=== PATIENT | male | born 1990 | race Two or more races ===

== ENCOUNTER → 2025-02-11 | Outpatient (CLI) | payer MEDICAID, SELFPAY ==
--- NOTE | 2025-02-11 | XR_ITS ---
Examination: Esophagram standard Upright PA chest single view Upright soft tissue lateral neck single view 13 spot fluoroscopic films of the esophagus Fluoroscopy Exam date and time: The film today 0954 hours INDICATIONS: Difficulty swallowing 2 years getting worse TECHNIQUE AND FINDINGS: Upright PA chest single view demonstrates normal heart size, clear lungs Upright soft tissue lateral neck demonstrates adequate alignment cervical vertebral bodies, mild osteophyte formation anteriorly C6-C7 Primary peristaltic esophageal waves noted No constricting esophageal lesion Small retrocardiac gastric hernia. Mild intermittent gastroesophageal reflux. There is no stricture at the gastroesophageal junction IMPRESSION: Mild intermittent gastroesophageal reflux. There is no stricture at the gastroesophageal junction Fluoroscopy 0.24 minutes 13 spot fluoroscopic films of the esophagus
== END | disposition home or self-care (01) ==
PROVIDERS: PCP Nurse Practitioner Family; Referring Provider Nurse Practitioner Family; Visit Provider Nurse Practitioner Family
DX: K21.9 Gastro-esophageal reflux disease without esophagitis (principal)
CPT/HCPCS: 74220; A4699

== ENCOUNTER 2025-09-07 16:08 | Emergency (ER) | payer MEDICAID, SELFPAY ==
[2025-09-07 16:10] VITALS: BMI 29.8
[2025-09-07 16:47] VITALS: BP 118/73; PULSE 60; RESP 18; TEMP 37.3; O2SAT 98
--- NOTE | 2025-09-07 17:18 | XR_ITS ---
Examination: Knee, right, 3 views Technique: Knee AP, lateral, oblique 3 views Date and time of exam: September 07, 2025, 1727 hours INDICATIONS: Sudden onset knee pain beginning 3 days ago FINDINGS: Mild tricompartment osteoarthritis No fracture or dislocation Small knee effusion IMPRESSION: Mild tricompartment osteoarthritis No fracture
[2025-09-07] MEDS: ACETAMINOPHEN 500 MG TABLET 1000 MG PO (17:23)
[2025-09-07] MEDS: IBUPROFEN TAB 400 MG TABLET 800 MG PO (17:23)
--- NOTE | 2025-09-07 17:38 | EDRME_ITS ---
Rapid Medical Screening Exam [facility] Arrival date/time: 09/07/25 16:08 This is a 35-year-old male that comes into the emergency room with complaints of right knee pain. Patient states his right knee is slightly erythemic and is getting swollen. Patient denies trauma. Patient states he did injure his knee approximately 3 weeks ago but did not have any swelling at that time. Patient currently being treated for an abscess to his right hip area and is currently on clindamycin. Patient denies any trauma to his right knee and insist on an x- ray. I have greeted and performed a focused initial assessment of this patient. Initial appropriate labs ordered at this time. A comprehensive ED assessment and evaluation of the patient and analysis of all test and completion of medical decision making process will be conducted by additional ED provider. Chief Complaint: Skin/Abscess/Foreign Body Time Seen by Provider: 09/07/25 16:41 Vital signs: Vital Signs Temperature 99.1 F 09/07/25 16:47 Pulse Rate 60 09/07/25 16:47 Respiratory Rate 18 09/07/25 16:47 Blood Pressure 118/73 09/07/25 16:47 Pulse Oximetry (%) 98 09/07/25 16:47 Oxygen Delivery Method Room Air 09/07/25 16:47
--- NOTE | 2025-09-07 18:19 | PD.EDSKIN ---
ED Skin Abcess FB-RME/HPI General Chief complaint: Skin/Abscess/Foreign Body Stated complaint: R HIP & KNEE ABSCESS X3 DAYS Time Seen by Provider: 09/07/25 16:41 Arrival date/time: 09/07/25 16:08 RME / HPI RME / HPI narrative: 09/07/25 16:08 This is a 35-year-old male that comes into the emergency room with complaints of right knee pain. Patient states his right knee is slightly erythemic and is getting swollen. Patient denies trauma. Patient states he did injure his knee approximately 3 weeks ago but did not have any swelling at that time. Patient currently being treated for an abscess to his right hip area and is currently on clindamycin. Patient denies any trauma to his right knee and insist on an x-ray. I have greeted and performed a focused initial assessment of this patient. Initial appropriate labs ordered at this time. A comprehensive ED assessment and evaluation of the patient and analysis of all test and completion of medical decision making process will be conducted by additional ED provider. See MDM for HPI Documentation Related Data Previous Rx's ?Medication ?Instructions ?Recorded acetaminophen 300 mg-codeine 30 mg 2 tab PO Q8H PRN pain #20 tabs 09/07/25 tablet amoxicillin 875 mg-potassium 1 tab PO BID #20 tabs 09/07/25 clavulanate 125 mg tablet ibuprofen 800 mg tablet 800 mg PO Q8H PRN pain #30 tabs 09/07/25 lidocaine 5 % topical patch 2 patch topical QDAY PRN pain #30 09/07/25 (Lidoderm) ea Allergies Allergy/AdvReac Type Severity Reaction Status Date / Time No Known Allergies Allergy Verified 09/07/25 16:13 Review of Systems Review of Systems Systems Reviewed: All systems reviewed, normal except as documented Past Medical History Social History SMOKING STATUS: Never smoker ED Exam Narrative Physical exam: See [facility] for Physical Exam Documentation Course Quality Measures none Orders Category Date Time Status XR knee RT 3V Stat Exams 09/07/25 17:18 Completed Acetaminophen Tab [Tylenol ES Tab] Med 09/07/25 17:17 Discontinued 1,000 mg PO X1 ONE Amoxicillin/Pot Clav 875 [Augmentin 875] Med 09/07/25 18:36 Discontinued 1 tab PO X1 ONE Ibuprofen Tab [Motrin Tab] Med 09/07/25 17:17 Discontinued 800 mg PO X1 ONE Vital Signs Vital signs: Vital Signs Temperature 99.1 F 09/07/25 16:47 Pulse Rate 60 09/07/25 16:47 Respiratory Rate 18 09/07/25 16:47 Blood Pressure 118/73 09/07/25 16:47 Pulse Oximetry (%) 98 09/07/25 16:47 Oxygen Delivery Method Room Air 09/07/25 16:47 Skin / Abscess / Foreign Body MDM Narrative MDM Narrative:: This section includes all my notes and documentations, including HPI, PE, and ED course. Kayden Orona MD HPI: 35 y/o male presents with right knee pain and swelling x 3 days. With redness and warmth. No other complaints. ROS: All negative except as documented in HPI. Physical Exam: General: Alert and oriented. No acute distress when remaining still. Eyes: Conjunctivae and lids clear. ENT: No nasal congestion. Neck: Supple. Lungs: No respiratory distress. Skin: Warm and dry. Neuro: Alert and oriented X 3. Right knee: Superficial apple sized erythema and edema noted anteriorly with calor. At the center, there is acorn sized abrasion (patient reports recent scrape injury). No bony tenderness. No limited range of motion. I reviewed all diagnostic test results: My interpretation of the right knee x-ray is NAD. At this point, diagnoses include: Cellulitis Treatment here included: Tylenol 1,000 mg Motrin 800 mg Augmentin 875 He started to feel better. Recommended outpatient management. Based on my best medical judgment, made decision no further evaluation or treatment indicated at this time. Patient understands and agrees to the discharge instructions customized and printed, see below. Discharge Instructions from Dr. Orona printed for you: 1. After evaluation, you have cellulitis infection over the right knee and under the skin. From your scrape injury recently which introduced germs under the skin. 2. Take Augmentin to kill the germs causing the infection. 3. For 3 days, elevate the knee above your waist level is much as possible. 4. Ibuprofen 800 mg every 6-8 hours today and tomorrow to decrease inflammation then as needed. Tylenol with codeine and lidocaine patches as needed. 5. See a private doctor on 09/09/2025 for recheck. Ask for help until you are completely better. 6. Seek immediate medical care with fever, spreading redness despite taking Augmentin for 24 hours, or with any concerns. Kayden Orona MD Patient data External records reviewed:: [facility] previous records (No prior ED records available for review) Clinical information provided by:: patient Social determinants that could affect healthcare access:: none Patient has the following chronic illnesses:: None reported How is presenting disease/condition affected by chronic disease/condition?: no chronic disease Evaluation data The following diagnostics were reviewed and interpreted by me:: radiology exam(s) Lab and/or radiology exams considered but not ordered:: None Interpretation Summary: I reviewed all diagnostic test results: My interpretation of the right knee x-ray is NAD. Medications / Prescriptions Medications or Prescriptions considered but not ordered:: None Medication administrations:: Medication Administration History Discontinued Medications Acetaminophen (Acetaminophen 500 Mg Tablet) 1,000 mg PO X1 ONE Stop: 09/07/25 17:18 Last Admin: 09/07/25 17:23 Dose: 1,000 mg Documented By: [facility] Amoxicillin/Clavulanate Potassium (Amoxicillin/Pot Clav 875 Tablet) 1 tab PO X1 ONE Stop: 09/07/25 18:37 Last Admin: 09/07/25 18:45 Dose: 1 tab Documented By: Ibuprofen (Ibuprofen Tab 400 Mg Tablet) 800 mg PO X1 ONE Stop: 09/07/25 17:18 Last Admin: 09/07/25 17:23 Dose: 800 mg Documented By: [facility] Tylenol 1,000 mg Motrin 800 mg Augmentin 875 Consultations Consultation(s) initiated? (list below): No Diagnosis Skin/Abscess Differential Diagnosis: abscess of skin or subcutaneous tissue, cellulitis, contact dermatitis and other (Knee pain, strain) Most likely diagnosis given after review of the tests above:: Cellulitis Admission Indicated Admission indicated?: not indicated Explain why admission is indicated or not indicated:: With significant improvement and no condition needing emergent intervention, there was no indication for admission. Admission Request Was there a request for admission?: No Disposition Plan Disposition Plan: Discharge Discharge Attestation Discharge Attestation: The patient and all family members were given an opportunity to ask questions and understood the discharge instructions. Discharge instructions specifically effects, indications for sooner follow up or return to the emergency department, and the expected course of current diagnosis. Patient condition: Stable Discharge Plan Plan Patient Disposition: HOME (Self Care) Prescriptions/Referrals Prescriptions/Med Rec: New ibuprofen 800 mg tablet 800 mg PO Q8H PRN (Reason: pain) Qty: 30 0RF acetaminophen-codeine 300-30 mg tablet 2 tab PO Q8H MDD 6 PRN (Reason: pain) Qty: 20 0RF lidocaine [Lidoderm] 5 % adhesive patch,medicated 2 patch topical QDAY PRN (Reason: pain) Qty: 30 0RF Rx Instructions: leave on most painful area for up to 12 hrs amoxicillin-pot clavulanate 875-125 mg tablet 1 tab PO BID Qty: 20 0RF Referrals: Jessika Carver FNP [Primary Care Provider] - In 1 week Problem List Clinical Impression: Cellulitis Patient/Caregiver Discharge Instructions Discharge Activity: activity as tolerated Education Materials: ED Cellulitis Additional Instructions: Discharge Instructions from Dr. Orona printed for you: 1. After evaluation, you have cellulitis infection over the right knee and under the skin. From your scrape injury recently which introduced germs under the skin. 2. Take Augmentin to kill the germs causing the infection. 3. For 3 days, elevate the knee above your waist level is much as possible. 4. Ibuprofen 800 mg every 6-8 hours today and tomorrow to decrease inflammation then as needed. Tylenol with codeine and lidocaine patches as needed. 5. See a private doctor on 09/09/2025 for recheck. Ask for help until you are completely better. 6. Seek immediate medical care with fever, spreading redness despite taking Augmentin for 24 hours, or with any concerns. Print Language: Martiniquais Stand Alone Forms: Trish Award Info., Patient Portal Info Letter
[2025-09-07] MEDS: AMOXICILLIN/POT CLAV 875 TABLET 1 TAB PO (18:45)
[2025-09-07 19:06] VITALS: RESP 18
== END 2025-09-07 19:07 | disposition home or self-care (01) ==
PROVIDERS: Emergency Provider Emergency Medicine; PCP Nurse Practitioner Family
DX: L02.415 Cutaneous abscess of right lower limb (principal)
CPT/HCPCS: 73562; 99283; A9270